=== PATIENT | male | born 1960 | race African-American/Black ===

== ENCOUNTER 2017-12-01 10:23 | Observation (INO) | payer OTHER ==
[2017-12-01] MEDS ORDERED: NITROGLYCERIN (SL) 0.4 MG TAB SL ×2 (11:00→17:00)
[2017-12-01 11:11] LABS: ADD MAN DIFF? NO
[2017-12-01 11:14] LABS: BASOPHILS % 0.2 % (0.0-2.0); EOSINOPHILS # 0.2 10^3/ul (0.0-0.5); EOSINOPHILS % 4.3 % (0.0-7.0); HEMATOCRIT 40.3 % (42.0-52.0); LYMPHOCYTES % 38.3 % (15.0-51.0); MEAN CORPUSCULAR HEMOGLOBIN 24.1 pg (29.0-33.0); MEAN CORPUSCULAR HGB CONC 32.3 g/dl (32.0-37.0); MEAN CORPUSCULAR VOLUME 74.8 fl (82.0-101.0); MEAN PLATELET VOLUME 10.5 fl (7.4-10.4); MONOCYTE # 0.3 10^3/ul (0.3-0.9); MONOCYTES % 5.5 % (0.0-11.0); NEUTROPHIL # 2.6 10^3/ul (1.6-7.5); NEUTROPHILS % 51.5 % (39.0-77.0); PLATELET COUNT 213 10^3/UL (140-415); RED BLOOD COUNT 5.39 10^6/ul (4.70-6.10); RED CELL DISTRIBUTION WIDTH 16.2 % (11.5-14.5)
[2017-12-01 11:14] LABS: WHITE BLOOD COUNT 5.1 10^3/ul (4.8-10.8)
[2017-12-01] MEDS: ONDANSETRON 4 MG INJ IV (11:25)
[2017-12-01] MEDS: morphine 4 MG/ML VIAL IV ×2 (11:26→12:59)
[2017-12-01] MEDS: NITROGLYCERIN 2% 1 GM OINT PKT TD (11:26)
[2017-12-01 11:33] LABS: ANION GAP 19 (8-16); BLOOD UREA NITROGEN 15 mg/dl (7-20); CALCIUM 9.2 mg/dl (8.4-10.2); CARBON DIOXIDE 26 mmol/L (21-31); CHLORIDE 104 mmol/L (97-110); CREATININE 0.91 mg/dl (0.61-1.24); GLUCOSE 112 mg/dl (70-220); POTASSIUM 3.5 mmol/L (3.5-5.1); SODIUM 145 mmol/L (135-144)
[2017-12-01 11:45] LABS: TROPONIN-I 0.038 ng/ml (0.00-0.12)
[2017-12-01] MEDS ORDERED: ACETAMINOPHEN 325 MG TAB PO ×2 (13:30→17:00)
[2017-12-01] MEDS ORDERED: ONDANSETRON 4 MG INJ IV ×2 (13:30→17:00)
[2017-12-01 13:56] LABS: INR 1.05; PROTIME 13.8 Sec (11.9-14.9); PT RATIO 1.1
[2017-12-01 13:57] LABS: PARTIAL THROMBOPLASTIN TIME 33.7 Sec (25.0-35.0)
[2017-12-01] MEDS ORDERED: BISACODYL 10 MG SUPP PR (17:00)
[2017-12-01] MEDS ORDERED: MAGNESIUM HYDROXIDE 30ML CUP PO (17:00)
[2017-12-01] MEDS ORDERED: DOCUSATE SODIUM 100 MG CAP PO (17:00)
[2017-12-01] MEDS ORDERED: HYDROCODONE/APAP (5/325) TAB PO (17:00)
[2017-12-01] MEDS ORDERED: NACL 0.9% 3 ML SYG IV (17:00)
[2017-12-01] MEDS ORDERED: LORAZEPAM 0.5 MG TAB PO (17:00)
[2017-12-01] MEDS ORDERED: hydrALAzine 20 MG INJ IV (17:30)
[2017-12-01 18:13] LABS: CREATINE KINASE 198 IU/L (23-200)
[2017-12-01 18:19] LABS: D-DIMER 799.11 ng/ml (<460)
[2017-12-01 18:26] LABS: CK INDEX 0.6; TROPONIN-I 0.031 ng/ml (0.00-0.12)
[2017-12-01 18:33] LABS: CK-MB 1.27 ng/ml (0.0-2.4)
[2017-12-01] MEDS ORDERED: FAMOTIDINE 20 MG TAB PO (21:00)
[2017-12-01] MEDS: LISINOPRIL 10 MG TAB PO (21:10)
[2017-12-01] MEDS: LEVETIRACETAM 500 MG TAB PO (21:11)
[2017-12-01] MEDS: FUROSEMIDE 20 MG TAB PO (21:11)
[2017-12-01] MEDS: FAMOTIDINE 20 MG TAB PO (21:11)
[2017-12-01] MEDS: HYDROCODONE/APAP (5/325) TAB PO (22:24)
[2017-12-01 23:17] LABS: CREATINE KINASE 166 IU/L (23-200)
[2017-12-01 23:31] LABS: CK INDEX 0.7; TROPONIN-I 0.044 ng/ml (0.00-0.12)
[2017-12-01 23:34] LABS: CK-MB 1.16 ng/ml (0.0-2.4)
[2017-12-02 07:55] LABS: ALANINE AMINOTRANSFERASE 29 IU/L (13-69); ALBUMIN 3.8 g/dl (3.3-4.9); ALBUMIN/GLOBULIN RATIO 1.08; ALKALINE PHOSPHATASE 113 IU/L (42-121); ANION GAP 17 (8-16); ASPARTATE AMINO TRANSFERASE 19 IU/L (15-46); BILIRUBIN,INDIRECT 0.4 mg/dl (0-1.1); BILIRUBIN,TOTAL 0.4 mg/dl (0.2-1.3); BLOOD UREA NITROGEN 16 mg/dl (7-20); CALCIUM 8.7 mg/dl (8.4-10.2); CARBON DIOXIDE 30 mmol/L (21-31); CHLORIDE 103 mmol/L (97-110); CHOL/HDL RATIO 3.9 RATIO; CHOLESTEROL 98 mg/dl (100-200); CREATININE 1.09 mg/dl (0.61-1.24); GLUCOSE 97 mg/dl (70-220); HDL CHOLESTEROL 25 mg/dl (28-71); LDL CHOLESTEROL,CALCULATED 52 mg/dl; MAGNESIUM 1.8 mg/dl (1.7-2.5); POTASSIUM 3.8 mmol/L (3.5-5.1); SODIUM 146 mmol/L (135-144); TOTAL PROTEIN 7.3 g/dl (6.1-8.1); TRIGLYCERIDES 107 mg/dl (0-149)
[2017-12-02 08:03] LABS: HEMOGLOBIN A1C 5.9 % (0-5.9)
[2017-12-02] MEDS: ATORVASTATIN 80 MG TAB PO (09:14)
[2017-12-02] MEDS: LISINOPRIL 10 MG TAB PO (09:15)
[2017-12-02] MEDS: FAMOTIDINE 20 MG TAB PO (09:15)
[2017-12-02] MEDS: LEVETIRACETAM 500 MG TAB PO (09:16)
[2017-12-02] MEDS: FUROSEMIDE 20 MG TAB PO ×2 (09:16→12:16)
[2017-12-02] MEDS: ENOXAPARIN 40 MG/0.4 ML SYG SC (09:22)
[2017-12-02] MEDS: IOHEXOL 100 ML (11:15)
[2017-12-02] MEDS: SOD CHLORIDE 0.9% 100 ML (11:15)
[2017-12-02] MEDS: IOHEXOL 350MG/ML 50 ML BTL (11:16)
[2017-12-03] MEDS ORDERED: ASPIRIN 81 MG TAB PO (09:00)
== END 2017-12-02 16:48 | disposition home or self-care (01) ==
LOC: E/R 10:23 → MS4 13:28
DX: R07.9 Chest pain, unspecified (principal); I25.10 Atherosclerotic heart disease of native coronary artery without angina pectoris; I42.9 Cardiomyopathy, unspecified; I11.0 Hypertensive heart disease with heart failure; I50.22 Chronic systolic (congestive) heart failure; E66.01 Morbid (severe) obesity due to excess calories; Z68.41 Body mass index [BMI] 40.0-44.9, adult; E78.00 Pure hypercholesterolemia, unspecified; G89.29 Other chronic pain; M54.9 Dorsalgia, unspecified; Z59.0 Homelessness; Z82.49 Family history of ischemic heart disease and other diseases of the circulatory system
CPT/HCPCS: 36415; 71045; 71275; 80048; 80053; 80061; 82550; 82553; 83036; 83735; 84484; 85025; 85378; 85610; 85730; 87081; 93005; 93306; 96374; 96375; 96376; 99285-25; G0378

== ENCOUNTER 2018-03-02 17:17 | Emergency (ER) | payer OTHER ==
[2018-03-02] MEDS: LEVETIRACETAM 500 MG (PMX) 100 ML IVPB (18:12)
[2018-03-02] MEDS: LORAZEPAM 2 MG INJ IV (18:12)
[2018-03-02] MEDS: LORAZEPAM 2 MG INJ IM (18:18)
[2018-03-02] MEDS: SOD CHLORIDE 0.9% 1,000 ML IV (19:11)
[2018-03-02] MEDS: FLUMAZENIL 0.5 MG INJ IV (22:55)
[2018-03-03 04:29] LABS: ADD MAN DIFF? NO
[2018-03-03 04:31] LABS: BASOPHILS % 0.1 % (0.0-2.0); EOSINOPHILS # 0.1 10^3/ul (0.0-0.5); EOSINOPHILS % 1.2 % (0.0-7.0); HEMATOCRIT 36.9 % (42.0-52.0); HEMOGLOBIN 11.7 g/dl (14.0-18.0); LYMPHOCYTES % 22.9 % (15.0-51.0); MEAN CORPUSCULAR HEMOGLOBIN 24.7 pg (29.0-33.0); MEAN CORPUSCULAR HGB CONC 31.7 g/dl (32.0-37.0); MEAN CORPUSCULAR VOLUME 77.8 fl (82.0-101.0); MEAN PLATELET VOLUME 10.5 fl (7.4-10.4); MONOCYTE # 0.7 10^3/ul (0.3-0.9); MONOCYTES % 7.6 % (0.0-11.0); NEUTROPHIL # 5.9 10^3/ul (1.6-7.5); PLATELET COUNT 147 10^3/UL (140-415); RED BLOOD COUNT 4.74 10^6/ul (4.70-6.10); RED CELL DISTRIBUTION WIDTH 15.9 % (11.5-14.5)
[2018-03-03 04:31] LABS: WHITE BLOOD COUNT 8.7 10^3/ul (4.8-10.8)
[2018-03-03 04:51] LABS: ANION GAP 14 (8-16); BLOOD UREA NITROGEN 12 mg/dl (7-20); CALCIUM 8.7 mg/dl (8.4-10.2); CARBON DIOXIDE 30 mmol/L (21-31); CHLORIDE 106 mmol/L (97-110); GLUCOSE 92 mg/dl (70-220); POTASSIUM 3.3 mmol/L (3.5-5.1); SODIUM 147 mmol/L (135-144)
== END 2018-03-03 09:34 | disposition home or self-care (01) ==
LOC: E/R 03-03 09:34
DX: G40.909 Epilepsy, unspecified, not intractable, without status epilepticus (principal); I10 Essential (primary) hypertension; J45.909 Unspecified asthma, uncomplicated; R40.2252 Coma scale, best verbal response, oriented, at arrival to emergency department; R40.2142 Coma scale, eyes open, spontaneous, at arrival to emergency department; R40.2362 Coma scale, best motor response, obeys commands, at arrival to emergency department
CPT/HCPCS: 80048; 85025; 93005; 96372; 96374; 96375; 99284-25

== ENCOUNTER 2018-03-07 21:58 | Emergency (ER) | payer OTHER ==
[2018-03-07] MEDS: FUROSEMIDE 40 MG INJ IV (22:04)
[2018-03-07] MEDS: NITROGLYCERIN 2% 1 GM OINT PKT TD (22:04)
[2018-03-07] MEDS ORDERED: NITROGLYCERIN (SL) 0.4 MG TAB SL (22:30)
[2018-03-07] MEDS: FUROSEMIDE 20 MG TAB PO (23:23)
== END 2018-03-07 23:45 | disposition home or self-care (01) ==
LOC: E/R 21:58
DX: R06.02 Shortness of breath (principal); R07.9 Chest pain, unspecified; I10 Essential (primary) hypertension; J45.909 Unspecified asthma, uncomplicated; I50.9 Heart failure, unspecified
CPT/HCPCS: 71045; 99284-25

== ENCOUNTER 2018-03-10 16:46 | Inpatient (IN) | payer OTHER ==
[2018-03-10 20:07] LABS: ADD MAN DIFF? NO
[2018-03-10 20:11] LABS: BASOPHILS % 0.3 % (0.0-2.0); EOSINOPHILS # 0.2 10^3/ul (0.0-0.5); EOSINOPHILS % 2.7 % (0.0-7.0); HEMATOCRIT 37.5 % (42.0-52.0); LYMPHOCYTES # 2.6 10^3/ul (0.8-2.9); LYMPHOCYTES % 38.6 % (15.0-51.0); MEAN CORPUSCULAR HEMOGLOBIN 24.9 pg (29.0-33.0); MEAN PLATELET VOLUME 11.3 fl (7.4-10.4); MONOCYTE # 0.5 10^3/ul (0.3-0.9); MONOCYTES % 8.2 % (0.0-11.0); NEUTROPHIL # 3.3 10^3/ul (1.6-7.5); NEUTROPHILS % 49.9 % (39.0-77.0); PLATELET COUNT 201 10^3/UL (140-415); RED BLOOD COUNT 4.81 10^6/ul (4.70-6.10); RED CELL DISTRIBUTION WIDTH 15.6 % (11.5-14.5)
[2018-03-10 20:11] LABS: WHITE BLOOD COUNT 6.6 10^3/ul (4.8-10.8)
[2018-03-10 20:40] LABS: ALANINE AMINOTRANSFERASE 23 IU/L (13-69); ALBUMIN 3.9 g/dl (3.3-4.9); ALBUMIN/GLOBULIN RATIO 1.02; ALKALINE PHOSPHATASE 125 IU/L (42-121); ANION GAP 17 (8-16); ASPARTATE AMINO TRANSFERASE 20 IU/L (15-46); BILIRUBIN,INDIRECT 0.4 mg/dl (0-1.1); BILIRUBIN,TOTAL 0.4 mg/dl (0.2-1.3); BLOOD UREA NITROGEN 20 mg/dl (7-20); CARBON DIOXIDE 28 mmol/L (21-31); CHLORIDE 102 mmol/L (97-110); CREATININE 1.29 mg/dl (0.61-1.24); GLUCOSE 86 mg/dl (70-220); LIPASE 174 U/L (23-300); POTASSIUM 4.2 mmol/L (3.5-5.1); SODIUM 143 mmol/L (135-144); TOTAL PROTEIN 7.7 g/dl (6.1-8.1)
[2018-03-10 20:52] LABS: B-TYPE NATRIURETIC PEPTIDE 2700 PG/ML (0-125); TROPONIN-I 0.046 ng/ml (0.000-0.120)
[2018-03-11] MEDS: ASPIRIN 81 MG TAB PO (00:03)
[2018-03-11] MEDS: FUROSEMIDE 40 MG INJ IV (00:03)
[2018-03-11] MEDS: OXYCODONE/ACETAMINOPHEN (5/325) TAB PO (00:04)
[2018-03-11] MEDS ORDERED: morphine 2 MG INJ IV (05:00)
[2018-03-11] MEDS ORDERED: ONDANSETRON 4 MG INJ IV (05:00)
[2018-03-11] MEDS ORDERED: NACL 0.9% 3 ML SYG IV (05:00)
[2018-03-11] MEDS ORDERED: ACETAMINOPHEN 325 MG TAB PO (05:00)
[2018-03-11 06:07] LABS: ADD MAN DIFF? NO
[2018-03-11 06:14] LABS: BASOPHILS % 0.2 % (0.0-2.0); EOSINOPHILS # 0.2 10^3/ul (0.0-0.5); EOSINOPHILS % 3.5 % (0.0-7.0); HEMATOCRIT 36.7 % (42.0-52.0); HEMOGLOBIN 11.8 g/dl (14.0-18.0); LYMPHOCYTES # 2.5 10^3/ul (0.8-2.9); LYMPHOCYTES % 45.8 % (15.0-51.0); MEAN CORPUSCULAR HEMOGLOBIN 25.1 pg (29.0-33.0); MEAN CORPUSCULAR HGB CONC 32.2 g/dl (32.0-37.0); MEAN CORPUSCULAR VOLUME 78.1 fl (82.0-101.0); MEAN PLATELET VOLUME 10.8 fl (7.4-10.4); MONOCYTE # 0.4 10^3/ul (0.3-0.9); MONOCYTES % 7.5 % (0.0-11.0); NEUTROPHIL # 2.4 10^3/ul (1.6-7.5); NEUTROPHILS % 42.6 % (39.0-77.0); PLATELET COUNT 193 10^3/UL (140-415); RED CELL DISTRIBUTION WIDTH 15.4 % (11.5-14.5)
[2018-03-11 06:14] LABS: WHITE BLOOD COUNT 5.5 10^3/ul (4.8-10.8)
[2018-03-11] MEDS: FUROSEMIDE 20 MG INJ IV ×2 (06:40→17:10)
[2018-03-11 06:43] LABS: TROPONIN-I 0.056 ng/ml (0.000-0.120)
[2018-03-11 06:46] LABS: ALANINE AMINOTRANSFERASE 22 IU/L (13-69); ALBUMIN 3.7 g/dl (3.3-4.9); ALBUMIN/GLOBULIN RATIO 1.05; ALKALINE PHOSPHATASE 120 IU/L (42-121); ANION GAP 17 (8-16); ASPARTATE AMINO TRANSFERASE 18 IU/L (15-46); BILIRUBIN,INDIRECT 0.5 mg/dl (0-1.1); BILIRUBIN,TOTAL 0.5 mg/dl (0.2-1.3); BLOOD UREA NITROGEN 19 mg/dl (7-20); CALCIUM 8.7 mg/dl (8.4-10.2); CARBON DIOXIDE 29 mmol/L (21-31); CHLORIDE 102 mmol/L (97-110); CREATININE 1.12 mg/dl (0.61-1.24); GLUCOSE 86 mg/dl (70-220); MAGNESIUM 1.9 mg/dl (1.7-2.5); POTASSIUM 3.9 mmol/L (3.5-5.1); SODIUM 144 mmol/L (135-144); TOTAL PROTEIN 7.2 g/dl (6.1-8.1)
[2018-03-11] MEDS: LEVETIRACETAM 500 MG TAB PO ×2 (08:44→20:29)
[2018-03-11] MEDS: METHYLPREDNISOLONE 125 MG INJ IV (08:45)
[2018-03-11] MEDS: HEPARIN 5,000 UNIT/0.5 ML VIAL SC ×2 (08:46→20:38)
[2018-03-11] MEDS: ALBUTEROL/IPRATROPIUM (NEB) 3 ML AMP HHN (11:29)
[2018-03-11 12:08] LABS: TROPONIN-I 0.039 ng/ml (0.000-0.120)
[2018-03-11] MEDS: CEFTRIAXONE 1 GM/50 ML (PMX) 50 ML IVPB (15:59)
[2018-03-11] MEDS: AZITHROMYCIN 500MG/NS (PMX) 250 ML IVPB (17:08)
[2018-03-11] MEDS: ATORVASTATIN 80 MG TAB PO (20:30)
[2018-03-11] MEDS: ZOLPIDEM 5 MG TAB PO (22:05)
[2018-03-12] MEDS: FUROSEMIDE 20 MG INJ IV ×2 (05:25→18:55)
[2018-03-12] MEDS: LEVETIRACETAM 500 MG TAB PO ×2 (08:36→21:28)
[2018-03-12] MEDS: METHYLPREDNISOLONE 125 MG INJ IV (08:36)
[2018-03-12] MEDS: LISINOPRIL 5 MG TAB PO (08:58)
[2018-03-12] MEDS: HEPARIN 5,000 UNIT/0.5 ML VIAL SC ×2 (08:58→21:32)
[2018-03-12] MEDS: ASPIRIN 81 MG TAB GTB (08:59)
[2018-03-12] MEDS: ATORVASTATIN 80 MG TAB PO (21:28)
[2018-03-12] MEDS: ZOLPIDEM 5 MG TAB PO (22:30)
[2018-03-13] MEDS: FUROSEMIDE 40 MG TAB PO (06:12)
[2018-03-13] MEDS: LEVETIRACETAM 500 MG TAB PO ×2 (08:19→19:54)
[2018-03-13] MEDS: ASPIRIN 81 MG TAB GTB (08:19)
[2018-03-13] MEDS: LISINOPRIL 5 MG TAB PO (08:19)
[2018-03-13] MEDS: HEPARIN 5,000 UNIT/0.5 ML VIAL SC ×2 (08:25→20:01)
[2018-03-13] MEDS: ATORVASTATIN 80 MG TAB PO (19:56)
[2018-03-13] MEDS: morphine LIQ (10 MG/5 ML) CUP PO (22:30)
[2018-03-14] MEDS: FUROSEMIDE 40 MG TAB PO (05:53)
[2018-03-14] MEDS: ASPIRIN 81 MG TAB GTB (08:26)
[2018-03-14] MEDS: LEVETIRACETAM 500 MG TAB PO ×2 (08:27→20:32)
[2018-03-14] MEDS: LISINOPRIL 5 MG TAB PO (08:27)
[2018-03-14] MEDS: HEPARIN 5,000 UNIT/0.5 ML VIAL SC ×2 (08:36→20:35)
[2018-03-14] MEDS: LORAZEPAM 1 MG TAB PO ×2 (11:19→20:32)
[2018-03-14] MEDS: FUROSEMIDE 40 MG INJ IV (17:46)
[2018-03-14] MEDS: ATORVASTATIN 80 MG TAB PO (20:32)
[2018-03-14] MEDS: morphine LIQ (10 MG/5 ML) CUP PO (22:25)
[2018-03-15] MEDS: FUROSEMIDE 40 MG TAB PO ×2 (05:23→17:53)
[2018-03-15] MEDS: morphine LIQ (10 MG/5 ML) CUP PO (06:53)
[2018-03-15] MEDS: LEVETIRACETAM 500 MG TAB PO ×2 (09:00→21:21)
[2018-03-15] MEDS: ASPIRIN 81 MG TAB GTB (09:01)
[2018-03-15] MEDS: LISINOPRIL 5 MG TAB PO (09:02)
[2018-03-15] MEDS: HEPARIN 5,000 UNIT/0.5 ML VIAL SC ×2 (09:11→21:35)
[2018-03-15 09:36] LABS: B-TYPE NATRIURETIC PEPTIDE 1080 PG/ML (0-125)
[2018-03-15 09:38] LABS: ANION GAP 9 (8-16); BLOOD UREA NITROGEN 26 mg/dl (7-20); CALCIUM 9.3 mg/dl (8.4-10.2); CARBON DIOXIDE 30 mmol/L (21-31); CHLORIDE 105 mmol/L (97-110); CREATININE 1.09 mg/dl (0.61-1.24); GLUCOSE 80 mg/dl (70-220); MAGNESIUM 2.1 mg/dl (1.7-2.5); PHOSPHORUS 3.4 mg/dl (2.5-4.9); SODIUM 140 mmol/L (135-144)
[2018-03-15] MEDS: LORAZEPAM 1 MG TAB PO ×2 (10:15→16:34)
[2018-03-15] MEDS: ATORVASTATIN 80 MG TAB PO (21:21)
[2018-03-16] MEDS: FUROSEMIDE 40 MG TAB PO ×2 (07:05→18:15)
[2018-03-16] MEDS: ASPIRIN 81 MG TAB GTB (08:52)
[2018-03-16] MEDS: LEVETIRACETAM 500 MG TAB PO ×2 (08:52→22:51)
[2018-03-16] MEDS: LISINOPRIL 5 MG TAB PO (08:57)
[2018-03-16] MEDS: HEPARIN 5,000 UNIT/0.5 ML VIAL SC ×2 (09:08→23:02)
[2018-03-16] MEDS: LORAZEPAM 1 MG TAB PO (20:42)
[2018-03-16] MEDS: ATORVASTATIN 80 MG TAB PO (22:51)
[2018-03-17] MEDS: FUROSEMIDE 40 MG TAB PO ×2 (06:15→21:03)
[2018-03-17] MEDS: LEVETIRACETAM 500 MG TAB PO ×2 (08:37→21:03)
[2018-03-17] MEDS: LISINOPRIL 5 MG TAB PO (08:37)
[2018-03-17] MEDS: ASPIRIN 81 MG TAB GTB (08:37)
[2018-03-17] MEDS: HEPARIN 5,000 UNIT/0.5 ML VIAL SC ×2 (08:43→21:09)
[2018-03-17] MEDS: LORAZEPAM 1 MG TAB PO (21:02)
[2018-03-17] MEDS: ATORVASTATIN 80 MG TAB PO (21:03)
[2018-03-18] MEDS: ZOLPIDEM 5 MG TAB PO (02:44)
[2018-03-18] MEDS: FUROSEMIDE 40 MG TAB PO (05:58)
[2018-03-18] MEDS: ASPIRIN 81 MG TAB GTB (08:10)
[2018-03-18] MEDS: LISINOPRIL 5 MG TAB PO (08:10)
[2018-03-18] MEDS: LEVETIRACETAM 500 MG TAB PO (08:10)
[2018-03-18] MEDS: HEPARIN 5,000 UNIT/0.5 ML VIAL SC (08:15)
== END 2018-03-18 14:20 | disposition home or self-care (01) | DRG 291 ==
LOC: TEL 21:24 → MS2 03-17 16:40 → E/R 16:46
DX: I11.0 Hypertensive heart disease with heart failure (principal); J96.00 Acute respiratory failure, unspecified whether with hypoxia or hypercapnia; J44.1 Chronic obstructive pulmonary disease with (acute) exacerbation; N17.9 Acute kidney failure, unspecified; Z68.41 Body mass index [BMI] 40.0-44.9, adult; I50.23 Acute on chronic systolic (congestive) heart failure; I42.9 Cardiomyopathy, unspecified; Z59.0 Homelessness; E66.01 Morbid (severe) obesity due to excess calories; I25.10 Atherosclerotic heart disease of native coronary artery without angina pectoris; G40.909 Epilepsy, unspecified, not intractable, without status epilepticus; E78.00 Pure hypercholesterolemia, unspecified; Z95.810 Presence of automatic (implantable) cardiac defibrillator; Z91.14 Patient's other noncompliance with medication regimen
CPT/HCPCS: 71045; 80048; 80053; 83690; 83735; 83880; 84100; 84484; 85025; 93005; 94664; 96372; 96374; 96375; 96376; 99285-25

== ENCOUNTER 2018-03-20 22:44 | Emergency (ER) | payer OTHER ==
[2018-03-20 23:59] LABS: ADD MAN DIFF? NO
[2018-03-21 00:11] LABS: WHITE BLOOD COUNT 6.8 10^3/ul (4.8-10.8)
[2018-03-21 00:11] LABS: BASOPHILS % 0.3 % (0.0-2.0); EOSINOPHILS # 0.2 10^3/ul (0.0-0.5); EOSINOPHILS % 2.8 % (0.0-7.0); LYMPHOCYTES # 2.3 10^3/ul (0.8-2.9); LYMPHOCYTES % 33.4 % (15.0-51.0); MEAN CORPUSCULAR HEMOGLOBIN 24.2 pg (29.0-33.0); MEAN CORPUSCULAR HGB CONC 31.7 g/dl (32.0-37.0); MEAN CORPUSCULAR VOLUME 76.4 fl (82.0-101.0); MEAN PLATELET VOLUME 10.1 fl (7.4-10.4); MONOCYTE # 0.7 10^3/ul (0.3-0.9); MONOCYTES % 10.8 % (0.0-11.0); NEUTROPHIL # 3.5 10^3/ul (1.6-7.5); NEUTROPHILS % 52.3 % (39.0-77.0); PLATELET COUNT 243 10^3/UL (140-415); RED BLOOD COUNT 5.37 10^6/ul (4.70-6.10); RED CELL DISTRIBUTION WIDTH 15.1 % (11.5-14.5)
[2018-03-21 00:23] LABS: ANION GAP 14 (8-16); BLOOD UREA NITROGEN 27 mg/dl (7-20); CALCIUM 9.5 mg/dl (8.4-10.2); CARBON DIOXIDE 29 mmol/L (21-31); CHLORIDE 100 mmol/L (97-110); CREATININE 1.37 mg/dl (0.61-1.24); GLUCOSE 94 mg/dl (70-220); POTASSIUM 3.8 mmol/L (3.5-5.1); SODIUM 139 mmol/L (135-144)
[2018-03-21 00:33] LABS: TROPONIN-I 0.066 ng/ml (0.000-0.120)
[2018-03-21 00:42] LABS: PROTIME 14.4 Sec (11.9-14.9); PT RATIO 1.1
[2018-03-21 00:43] LABS: PARTIAL THROMBOPLASTIN TIME 31.7 Sec (25.0-35.0)
[2018-03-21] MEDS: SOD CHLORIDE 0.9% 1,000 ML IV (01:18)
[2018-03-21] MEDS: ACETAMINOPHEN 500 MG TAB PO (01:18)
[2018-03-21] MEDS: SUMATRIPTAN 25 MG TAB PO (01:19)
== END 2018-03-21 05:34 | disposition home or self-care (01) ==
LOC: E/R 22:44
DX: N28.9 Disorder of kidney and ureter, unspecified (principal); E86.0 Dehydration; J45.909 Unspecified asthma, uncomplicated; R55 Syncope and collapse; I10 Essential (primary) hypertension; Z95.0 Presence of cardiac pacemaker
CPT/HCPCS: 36415; 70450; 80048; 84484; 85025; 85610; 85730; 99285-25